=== PATIENT | female | born 1940 | race Caucasian/White ===

== ENCOUNTER → 2022-11-20 11:06 | Outpatient (BNVA) | payer MEDICARE, MEDICAID, SELFPAY | PROVIDERS: Visit Provider Nurse Practitioner Family | DX: R41.82 Altered mental status, unspecified (principal) | CPT/HCPCS: 80053; 81003; 85025; 87086 ==

== ENCOUNTER → 2025-06-09 15:00 | Outpatient (BNVA) | payer MEDICARE, MEDICAID, SELFPAY | PROVIDERS: PCP Nurse Practitioner Family; Visit Provider Nurse Practitioner Family | DX: R60.9 Edema, unspecified (principal); M25.562 Pain in left knee | CPT/HCPCS: 80053; 84550; 85025 ==

== ENCOUNTER → 2025-07-20 10:35 | Outpatient (BNVA) | payer MEDICARE, MEDICAID, SELFPAY | PROVIDERS: PCP Nurse Practitioner Family; Visit Provider Nurse Practitioner Family | DX: R25.9 Unspecified abnormal involuntary movements (principal) | CPT/HCPCS: 80053; 85025 ==

== ENCOUNTER → 2025-08-04 09:53 | Outpatient (BNVA) | payer MEDICARE, MEDICAID, SELFPAY | PROVIDERS: PCP Nurse Practitioner Family; Visit Provider Nurse Practitioner Family | DX: N39.0 Urinary tract infection, site not specified (principal); D70.9 Neutropenia, unspecified | CPT/HCPCS: 81000; 87086 ==

== ENCOUNTER → 2025-10-17 08:49 | Outpatient (BNVA) | payer MEDICARE, MEDICAID, SELFPAY | PROVIDERS: PCP Nurse Practitioner Family; Visit Provider Nurse Practitioner Family | DX: J44.9 Chronic obstructive pulmonary disease, unspecified (principal); D69.6 Thrombocytopenia, unspecified; D70.9 Neutropenia, unspecified | CPT/HCPCS: 81000; 87086 ==